=== PATIENT | female | born 1995 | race Caucasian/White ===

== ENCOUNTER 2017-02-23 21:42 | Emergency (ER) | payer BC, OTHER ==
[~2017-02-23] VITALS: Ht 170.2 cm; Wt 145.7 kg
[2017-02-23 21:44] VITALS: BP 152/92
[2017-02-23] MEDS ORDERED: DIPHENHYDRAMINE 50 MG/ML, 1ML ONE (23:26)
[2017-02-23] MEDS ORDERED: METOCLOPRAMIDE 5 MG/ML, 2ML ONE (23:26)
[2017-02-23] MEDS ORDERED: METOCLOPRAMIDE 5 MG/ML, 2ML IVPush ONE (23:30)
[2017-02-23] MEDS ORDERED: DIPHENHYDRAMINE 50 MG/ML, 1ML IVPush ONE (23:30)
[2017-02-23] MEDS ORDERED: SODIUM CHLORIDE 0.9% 1,000ML IVBOLUS ONE (23:30)
[2017-02-23 23:42] LABS: ASPARTATE AMINO TRANSFERASE 18 U/L (15-37); BLOOD UREA NITROGEN 13 mg/dL (7-18)
== END 2017-02-24 00:10 | disposition left against medical advice (07) ==
LOC: ED 23:59
DX: R51 Headache (principal)
CPT/HCPCS: 36415; 70450; 80053; 85025; 96374; 96375; 99285; J1200; J2765

== ENCOUNTER 2019-11-25 03:51 | Emergency (ER) | payer MEDICAID ==
[~2019-11-25] VITALS: Ht 170.2 cm; Wt 159.0 kg
[2019-11-25 03:53] VITALS: BP 125/85
[2019-11-25] MEDS ORDERED: HYDROmorphone 1 MG/ML, 1ML INJ IM ONE (04:30)
[2019-11-25] MEDS ORDERED: HYDROmorphone 1 MG/ML, 1ML INJ ONE (04:33)
--- NOTE | 2019-11-25 04:45 | NUR ---
PT MEDICATED PEER MAR. PT REQUESTING STEROIDS, STATED " I DRANK A BODY ARMOR DRINK FROM 03/29 YESTERDAY AND I DID NOT REALIZE IT HAD MAGNESIUM UNTIL AFTER I DRANK IT", ERP UPDATED AND NO NEW ORDERS AT THIS TIME, WILL REEVALUATE PT
[2019-11-25] MEDS ORDERED: METHOCARBAMOL 750 MG TABLET ONE (05:14)
--- NOTE | 2019-11-25 05:20 | NUR ---
MANAGER MERCHANDISING AT PT'S KOURTNEY ETO APPLY ARM SLING TO PT'S RIGHT ARM
[2019-11-25] MEDS ORDERED: METHOCARBAMOL 750 MG TABLET PO ONE (05:30)
== END 2019-11-25 05:34 | disposition home or self-care (01) ==
LOC: ED 05:28
DX: G89.11 Acute pain due to trauma (principal); M25.511 Pain in right shoulder; F10.120 Alcohol abuse with intoxication, uncomplicated; Y90.9 Presence of alcohol in blood, level not specified; Y08.89XA Assault by other specified means, initial encounter; Y92.29 Other specified public building as the place of occurrence of the external cause; Y99.8 Other external cause status; Y93.89 Activity, other specified
CPT/HCPCS: 73030; 96372; 99283; J1170